=== PATIENT | male | born 1985 | race Caucasian/White ===

== ENCOUNTER 2022-12-09 00:41 | Emergency (ER) | payer SELFPAY ==
[2022-12-09 00:45] VITALS: BP 121/61; PULSE 78; RESP 18; TEMP 37.3; O2SAT 98; BMI 28.1
--- NOTE | 2022-12-09 02:42 | ED_ITS ---
HPI - Epistaxis General Chief complaint: Nasal Problem Stated complaint: BLOODY NOSE Time Seen by Provider: 12/09/22 02:42 Source: patient Mode of arrival: Ambulatory History of Present Illness HPI Narrative: Healthy 37-year-old male with prior history of epistaxis remotely. Patient states he is had a cauterization remotely in the past. Patient states has occasionally had them at home but has not required any intervention. He does no t take any daily medications, no anticoagulants. Has not had any atypical bleeding otherwise. No known drug allergies. Denies any surgeries. Does use tobacco, occasional alcohol, denies any illicit or recreational drugs. Patient states this episode started about 11:00. this night, stopped for a little bit but then reoccurred and he was not able to control it at home. Denies any other symptoms. Related Data Previous Rx's Medication Instructions Recorded nicotine 14 mg/24 hr daily 14 mg topical QDAY #30 patches 07/24/16 transdermal patch citalopram 40 mg tablet (Celexa) 40 mg PO QDAY #90 tabs 03/18/18 Allergies Allergy/AdvReac Type Severity Reaction Status Date / Time No Known Drug Allergies Allergy Verified 12/09/22 02:53 Review of Systems Review of Systems ROS Unobtainable: All systems reviewed & are unremarkable except as noted in HPI and below Patient History Family History Grandfather Diabetes mellitus Heart disease Hypertension High cholesterol Grandmother Age: 83 Breast cancer Hypertension Social History Smoking Status: Current every day smoker Smoking Status: Current every day smoker tobacco type: vaping alcohol intake frequency: 0-2 drinks per day Alcohol type: beer Substance Use Type: does not use Exam Narrative Exam Narrative: GEN: well nourished, well appearing male, alert and oriented x [default value], patient appears to be in mild distress. HEENT: Atraumatic, pupils are equal round reactive to light, extraocular movements are intact, patient has blood from bilateral nares but significantly more from the right, there is no conjunctival pallor. Throat is clear without any exudates, erythema, tonsillar enlargement or uvular deviation HEART: Regular rate and rhythm without murmur, clicks, rubs. LUNGS:Lungs clear to auscultation, no wheezes, rales, crackles, chest moves symmetrically ABD:bowel sounds normal, soft, non-tender, no guarding, rebound, rigidity, no masses noted, no hepatosplenomegaly MSCL: Non-tender, no muscle atrophy, muscles strength 5/5 upper and lower extremities, full range of motion, normal gait NEURO:CN 2-12 intact, sensation normal. SKIN: No rash, erythema or other skin changes. Initial Vital Signs Initial Vital Signs: Vital Signs Temperature 99.1 F 12/09/22 00:45 Pulse Rate 78 12/09/22 00:45 Respiratory Rate 18 12/09/22 00:45 Blood Pressure 121/61 12/09/22 00:45 Pulse Oximetry 98 12/09/22 00:45 Oxygen Delivery Method Room Air 12/09/22 00:45 Procedures Epistaxis Control Nostril: right Direct Inspection: yes and unable to visualize Clots Removed by: blowing nose and manually Cautery Used: none Device Inserted: nasal tampon (5.5cm rhinorocket on right) Device Size: 5 Patient Tolerated Procedure: well and no complications Course Orders Ordered: Discontinued Medications Lidocaine HCl (Lidocaine 2% Inj Sdv 5ml) 5 ml INJ INTRA-OP ONE Stop: 12/09/22 02:52 Last Admin: 12/09/22 03:00 Dose: 5 ml Documented By: KAREN Oxymetazoline HCl (Oxymetazoline Nasal [place] 30 Ml) 2 sprays NASAL NOW ONE Stop: 12/09/22 02:52 Last Admin: 12/09/22 02:57 Dose: 2 sprays Documented By: KAREN Silver Nitrate/Potassium Nitrate (Silver Nitrate Stick) 1 each TOP NOW ONE Stop: 12/09/22 02:54 Last Admin: 12/09/22 03:01 Dose: 1 each Documented By: KAREN Tranexamic Acid (Tranexamic Acid 1,000 Mg Vial) 1,000 mg TOP NOW ONE Stop: 12/09/22 02:52 Last Admin: 12/09/22 03:00 Dose: 1,000 mg Documented By: KAREN Vital Signs Vital signs: Vital Signs - 8 hr 12/09/22 00:45 12/09/22 03:39 Temperature 99.1 F 97.5 F L Pulse Rate 78 60 Respiratory Rate 18 14 Blood Pressure 121/61 122/72 Pulse Oximetry 98 97 Oxygen Delivery Method Room Air Room Air MDM - Epistaxis MDM Narrative Medical decision making narrative: 7-year-old male with history of epistaxis intermittently, patient had episode this evening that he could not stop at home. Patient states he attempted Afrin at home without any success. Patient has required cauterization once in the past. On examination patient seems to have predominance of bleeding from the r ight but has blood from both sides may have posterior bleed. He states it seems to be very much more from the right side. With direct visualization could not see a clear source. Mainly removed clots but continued to bleed. Patient received Afrin nasal clamp without any improvement prior to this. A 5.5 cm rhino rocket was inserted that had been instilled in lidocaine 2% as well as TXA. Patient had a large clot off the back of his throat and about 5 seconds increased bleeding from the left and then bleeding stopped in entirety. Patient was monitored for about 25 minutes with no persistent bleeding. He would like to return home. Rhino rocket was left in place with plan for follow up with ENT tomorrow morning. Discussed with patient he can return here if they can not follow with him. Discussed return precautions. Discharge Plan Departure Patient Disposition: Home Clinical Impression: Epistaxis Instructions: DI for Nosebleed Activity Restrictions/Additional Instructions: Follow-up with ENT for removal of the rhino rocket in place. Call in the morning for an appointment. Do not leave it in for more than 48 hours, if ENT can not get you in you can return here for removal. Nosebleed self-care - With the right self-care, most nosebleeds stop on their own. Here's what you should do: 1. Blow your nose. This might increase the bleeding for a moment, but that's OK. 2. Sit or stand while bending forward a little at the waist. DO NOT lie down or tilt your head back. 3. Pinch the soft area towards the bottom of your nose, below the bone (picture 1). DO NOT pilot steam yacht the bridge of your nose between your eyes. That will not work. DO NOT press on just 1 side, even if the bleeding is only on 1 side. That will not work either. 4. Squeeze your nose shut for at least 15 minutes. (In children, squeeze for only 5 minutes.) Use a clock to time yourself. Do not release the pressure before the time is up to check if the bleeding has stopped. If you keep checking, you will ruin your chances of getting the bleeding to stop. If you follow these steps, and your nose keeps bleeding, repeat all the steps once more. Apply pressure for a total of at least 30 minutes (or 10 minutes for children). If you are still bleeding, go to the emergency room or an urgent care clinic. What if I get repeated nosebleeds? - Frequent nosebleeds can be caused by: Breathing dry air all the time Using cold or allergy nasal sprays too much Frequent colds Snorting drugs into your nose, such as cocaine In some cases, repeat nosebleeds can be a sign that your blood does not clot like it should. If that is the case, there are often other clues. For instance, people with clotting problems bruise easily and might bleed more than you would expect after a small cut or scrape. Nosebleed treatment - If you end up seeing a doctor or nurse for your nosebleed, he or she will make sure you can breathe OK. Then he or she will try to get the bleeding to stop. To do that, he or she might have to put a device or some packing material up your nose. What can I do to keep from getting nosebleeds? - You can: Use a humidifier (a machine that makes the air less dry) in your bedroom when you sleep Keep the inside of your nose moist with a nasal saline spray or gel Not pick your nose, or at least clip your nails before you do to avoid injury Prescriptions: No Action nicotine 14 MG patch 24 hour 14 mg Topical QDAY Qty: 30 2RF citalopram [Celexa] 40 mg tablet 40 mg PO QDAY Qty: 90 0RF Rx Instructions: Take one tablet by mouth daily Referrals: Frank Ortiz MD [Physician] - Stand Alone Forms: Patient Portal/API
[2022-12-09] MEDS: OXYMETAZOLINE NASAL SPRAY 30 ML 2 SPRAYS NASAL (02:57)
[2022-12-09] MEDS: TRANEXAMIC ACID 1,000 MG VIAL 1000 MG TOP (03:00)
[2022-12-09] MEDS: LIDOCAINE 2% INJ SDV 5ML 5 ML INJ (03:00)
[2022-12-09] MEDS: SILVER NITRATE STICK 1 EACH TOP (03:01)
[2022-12-09 03:39] VITALS: BP 122/72; PULSE 60; RESP 14; TEMP 36.4; O2SAT 97
--- NOTE | 2022-12-09 18:48 | PC.NURSE ---
Pt's called regarding what he could take for pain / discomfort. Reviewed tylenol dosing and to avoid blood thinners. Also encouraged ice pack directly to area as well. Encouraged to f/u as needed and indicated and return for any needs, concerns, worsening of symptoms. She verbalized understanding.
== END 2022-12-09 03:41 | disposition home or self-care (01) ==
PROVIDERS: Emergency Provider Emergency Medicine
DX: R04.0 Epistaxis (principal)
CPT/HCPCS: 30901; 99282; 99283